=== PATIENT | female | born 1940 | race Two or more races ===

== ENCOUNTER 2018-04-20 12:16 | Emergency (ER) | payer BC, MEDICARE, OTHER ==
[~2018-04-20] VITALS: Ht 165.1 cm; Wt 100.0 kg
[2018-04-20 12:28] VITALS: BP 94/58
== END 2018-04-20 13:36 | disposition left against medical advice (07) ==
LOC: ER 12:16
DX: Z53.21 Procedure and treatment not carried out due to patient leaving prior to being seen by health care provider (principal)
CPT/HCPCS: 93005